=== PATIENT | male | born 1965 | race Caucasian/White ===

== ENCOUNTER → 2016-04-11 | Outpatient (CLI) | payer BC ==
[~2016-04-11] MED LIST: ALLGUNK PO; IBUP-103 PO
[2016-04-11 12:22] LABS: HEMATOCRIT 43.5 % (42-52); MEAN CELL VOLUME 81.3 fL (80-100); MEAN CORPUSCULAR HEMOGLOBIN 28.8 pg (25-34); MEAN CORPUSCULAR HGB CONC 35.4 g/dl (32-36); MEAN PLATELET VOLUME 10.5 fL (7.4-10.4); PLATELET COUNT 169 K/uL (130-400); RED BLOOD COUNT 5.35 M/uL (4.7-6.1); WHITE BLOOD COUNT 5.33 K/uL (4.8-10.8)
[2016-04-11 12:33] LABS: ALT/SGPT 24 U/L (12-78); BLOOD UREA NITROGEN 16 mg/dl (7-18); BUN/CREATININE RATIO 14.5 (10-20); CALCIUM 8.8 mg/dl (8.5-10.1); CARBON DIOXIDE 29 mmol/L (21-32); CHLORIDE 104 mmol/L (98-107); CHOLESTEROL 236 mg/dl (0-200); GLUCOSE 82 mg/dl (70-99); POTASSIUM 4.2 mmol/L (3.5-5.1); SODIUM 141 mmol/L (136-145); TRIGLYCERIDES 163 mg/dl (0-150); VERY LOW DENSITY LIPOPROT CALC 33 mg/dl
[2016-04-11 12:38] LABS: ALB/GLOB RATIO 1.3 (0.9-2); ALKALINE PHOSPHATASE 56 U/L (45-117); AST/SGOT 17 U/L (15-37); CHOLESTEROL/HDL RATIO 5.5; HDL CHOLESTEROL 43 mg/dl; LDL CHOLESTEROL CALCULATED 160 mg/dl
[2016-04-11 13:52] LABS: LYME DISEASE AB IGG NEG (NEG)
[2016-04-11 13:53] LABS: LYME DISEASE AB IGM NEG (NEG)
== END | disposition home or self-care (01) ==
LOC: C.LABBFT 09:09
PROVIDERS: ATTEND Internal Medicine
DX: Z12.5 Encounter for screening for malignant neoplasm of prostate (principal); E78.5 Hyperlipidemia, unspecified; W57.XXXA Bitten or stung by nonvenomous insect and other nonvenomous arthropods, initial encounter; S30.861A Insect bite (nonvenomous) of abdominal wall, initial encounter

== ENCOUNTER → 2016-11-27 | Day surgery (SDC) | payer BC ==
[2016-11-14 07:43] VITALS: Ht 180.3 cm; Wt 90.9 kg
[~2016-11-27] VITALS: Ht 180.3 cm; Wt 90.9 kg
[~2016-11-27] MED LIST changes: -ALLGUNK PO; +LIDOCAINE HCL 2% 2 ML VIAL (20MG/ML) ONE; +PROPOFOL IV EMULSION 10 MG/ML 20 ML VIAL IV ONE
--- NOTE | 2016-11-27 09:33 | Endo History and Physical ---
History & Physical Date of Service: Nov 27, 2016. Chief Complaint: Screening Referring Physician: Dr. Varner History of Present Illness 51 yo CM who presents for screening colonoscopy. Past Surgical History Hx Cardiac Surgery: No Hx Internal Defibrillator: No Hx Pacemaker: No Hx Abdominal Surgery: Yes (APPY) Hx of Implantable Prosthesis: No Hx Post-Op Nausea and Vomiting: No Hx Cancer Surgery: No Hx Thoracic Surgery: No Hx Orthopedic: Yes (LOWER RT LEG SURGERY) Hx Urinary Tract Surgery: No Family History None Social History Smoking Status: Never Smoker Hx Substance Use: No Hx Alcohol Use: No Allergies Coded Allergies: No Known Allergies (Verified , 11/27/16) Current Medications Reported Home Medications Medications Dose Route/Sig Max Daily Dose Days Date Category Advil (Ibuprofen) 200 Mg Tab 400-600 Mg PO Q6H PRN 11/14/16 Reported Vital Signs Weight (Kilograms): 90.91 Height (Feet): 5 Height (Inches): 11 Date Time Temp Pulse Resp B/P (MAP) Pulse Ox O2 Delivery O2 Flow Rate FiO2 11/27/16 09:24 36.4 71 20 138/79 (98) 99 Room Air Physical Exam General Appearance: WD/WN, no apparent distress Respiratory/Chest: Auscultation: breath sounds normal Cardiovascular: Heart Auscultation: RRR Abdomen: Bowel Sounds: normal Inspection & Palpation: soft, non-distended, no tenderness, guarding & rebound Assessment and Plan Assessment: 51 yo CM who presents for screening colonoscopy. Plan: Proceed with colonoscopy.
--- NOTE | 2016-11-27 10:20 | Discharge Instructions ---
Endoscopy Patient Instructions Date / Procedure(s) Performed Nov 27, 2016. Colonoscopy Allergy Information Coded Allergies: No Known Allergies (Verified , 11/27/16) Discharge Date / Findings Nov 27, 2016. Colon polyps Internal Hemorrhoids Medication Instructions OK to resume all medications today as prescribed Reported Home Medications Medications Dose Route/Sig Max Daily Dose Days Date Category Advil (Ibuprofen) 200 Mg Tab 400-600 Mg PO Q6H PRN 11/14/16 Reported Provider Instructions Activity Restrictions - No exercising or heavy lifting for 24 hours. - Do not drink alcohol the day of the procedure. - Do not drive a car or operate machinery until the day after the procedure. - Do not make any important decisions or sign important papers in 24 hours after the procedure. Following Day: - Return to full activity which may include returning to work/school. Diet Start your diet with liquids and light foods (jello, soup, juice, toast). Then eat your usual diet if not nauseated. Treatment For Common After Affects For mild abdominal pain, bloating, or excessive gas: - Rest - Eat lightly - Lie on right side Follow-Up Information Follow-up with DR. MONTANO as scheduled Anesthesia Information What You Should Know You have had a procedure that required some medicine to reduce anxiety and discomfort. This treatment is called moderate sedation. After receiving the treatment, you may be sleepy, but you will be able to breathe on your own. The effects of the treatment may last for several hours. Follow these instructions along with Activity/Diet recommendations noted above: * Do NOT do anything where dizziness or clumsiness would be dangerous. * Rest quietly at home today, then you can be up and about tomorrow. * Have a responsible person stay with you the rest of today. * You may have had an I.V. today. If so, you may take the dressing off later today. Recommendations Call your doctor if: * Trouble breathing * Continuous vomiting for more than 24 hours * Temperature above 101 degrees * Severe abdominal pain or bloating * Pain not relieved by pain medicine ordered * There is increased drainage or redness from any incision * A large amount of rectal bleeding greater than 2-3 tablespoons. (If you had a polyp/s removed or have hemorrhoids, a small amount of blood - from the rectum is to be expected.) * You have any unanswered questions or concerns. IN THE EVENT OF A SERIOUS EMERGENCY, GO TO THE NEAREST EMERGENCY ROOM Your discharge instructions were prepared by provider Sandip Trevizo. Patient Instructions Signature Page Que Rodriges Patient (or Guardian) Signature/Date: I have read and understand the instructions given to me by my caregivers. Caregiver/RN/Doctor Signature/Date: The above-named patient and/or guardian has received patient instructions on this date. + Original Patient Signature Page (only) stays with chart. Please make copy for patient.
--- NOTE | 2016-11-27 10:54 | Anesthesiology Progress Note ---
Anesthesia Post Op Note Date & Time Nov 27, 2016 at 10:54 Vital Signs Pain Intensity: 0 Vital Signs Past 12 Hours Date Time Temp Pulse Resp B/P (MAP) Pulse Ox O2 Delivery O2 Flow Rate FiO2 11/27/16 10:41 64 20 121/86 (98) 98 Room Air 11/27/16 10:26 69 16 132/82 (99) 96 Room Air 11/27/16 10:11 67 16 124/79 (94) 95 Room Air 11/27/16 09:24 36.4 71 20 138/79 (98) 99 Room Air Notes Mental Status: alert / awake / arousable, participated in evaluation Pt Amnestic to Procedure: Yes Nausea / Vomiting: adequately controlled Pain: adequately controlled Airway Patency, RR, SpO2: stable & adequate BP & HR: stable & adequate Hydration State: stable & adequate Anesthetic Complications: no major complications apparent
[2016-11-27 11:00] VITALS: BP 124/87; PULSE 62; O2SAT 98
--- NOTE | 2016-11-28 00:14 | GI REPORT ---
Procedure Date: 11/27/2016 9:57 AM Procedure: Colonoscopy Indications: Screening for colorectal malignant neoplasm Medicines: Monitored Anesthesia Care Complications: No immediate complications. Estimated Blood Loss: Estimated blood loss: none. Procedure: Pre-Anesthesia Assessment: - Prior to the procedure, a History and Physical was performed, and patient medications and allergies were reviewed. The patient's tolerance of previous anesthesia was also reviewed. The risks and benefits of the procedure and the sedation options and risks were discussed with the patient. All questions were answered, and informed consent was obtained. Prior Anticoagulants: The patient has taken no previous anticoagulant or antiplatelet agents. ASA Grade Assessment: II - A patient with mild systemic disease. After reviewing the risks and benefits, the patient was deemed in satisfactory condition to undergo the procedure. After I obtained informed consent, the scope was passed under direct vision. Throughout the procedure, the patient's blood pressure, pulse, and oxygen saturations were monitored continuously. The scope was introduced through the anus and advanced to the terminal ileum. The colonoscopy was performed without difficulty. The patient tolerated the procedure well. The quality of the bowel preparation was good. The terminal ileum, ileocecal valve, appendiceal orifice, and rectum were photographed. Findings: A 4 mm polyp was found in the ascending colon. The polyp was sessile. The polyp was removed with a cold snare. Resection and retrieval were complete. A 6 mm polyp was found in the sigmoid colon. The polyp was sessile. The polyp was removed with a hot snare. Resection and retrieval were complete. Non-bleeding internal hemorrhoids were found during retroflexion. The hemorrhoids were small. Impression: - One 4 mm polyp in the ascending colon, removed with a cold snare. Resected and retrieved. - One 6 mm polyp in the sigmoid colon, removed with a hot snare. Resected and retrieved. - Non-bleeding internal hemorrhoids. Recommendation: - Resume previous diet. - Continue present medications. - Repeat colonoscopy for surveillance based on pathology results. - Return to primary care physician as previously scheduled. Sandip Trevizo DO 11/27/2016 10:23:28 AM This report has been signed electronically. Note Initiated On: 11/27/2016 9:57 AM I attest to the content of the Intraoperative Record and orders documented therein, exceptions below
== END | disposition home or self-care (01) ==
LOC: C.GI 09:08
PROVIDERS: ATTEND Internal Medicine
DX: Z12.11 Encounter for screening for malignant neoplasm of colon (principal); D12.2 Benign neoplasm of ascending colon; D12.5 Benign neoplasm of sigmoid colon; K64.8 Other hemorrhoids

== ENCOUNTER 2017-07-29 00:04 | Emergency (ER) | payer BC ==
[~2017-07-29] VITALS: Ht 180.3 cm; Wt 90.6 kg
[~2017-07-29 00:04] MED LIST changes: -LIDOCAINE HCL 2% 2 ML VIAL (20MG/ML) ONE; -PROPOFOL IV EMULSION 10 MG/ML 20 ML VIAL IV ONE
[2017-07-29 00:19] VITALS: O2SAT 98
[2017-07-29] MEDS ORDERED: FLUT0.15 NAE (00:35)
[2017-07-29] MEDS ORDERED: AMOX500C3 PO (00:35)
[2017-07-29 00:46] VITALS: Ht 180.3 cm; Wt 90.6 kg
[2017-07-29 00:57] LABS: BASO % 0.6 %; BASO ABS # 0.02 K/uL (0-0.2); EOS % 0.6 %; EOS ABS # 0.02 K/uL (0-0.5); HEMATOCRIT 42.7 % (42-52); HEMOGLOBIN 15.1 g/dL (14.0-18.0); IG# 0.03 K/uL (0.00-0.02); LYMPH % 11.4 %; LYMPH ABS # 0.39 K/uL (1.2-3.4); MEAN CELL VOLUME 81.8 fL (80-100); MEAN CORPUSCULAR HEMOGLOBIN 28.9 pg (25-34); MEAN CORPUSCULAR HGB CONC 35.4 g/dl (32-36); MONO % 19.3 %; MONO ABS # 0.66 K/uL (0.11-0.59); NEUT % 67.2 %; PLATELET COUNT 140 K/uL (130-400); WHITE BLOOD COUNT 3.42 K/uL (4.8-10.8)
[2017-07-29 01:01] LABS: ALBUMIN 3.9 gm/dl (3.4-5.0); ALT/SGPT 23 U/L (12-78); AST/SGOT 17 U/L (15-37); BLOOD UREA NITROGEN 13 mg/dl (7-18); CALCIUM 8.9 mg/dl (8.5-10.1); CARBON DIOXIDE 28 mmol/L (21-32); GLUCOSE 104 mg/dl (70-99); POTASSIUM 3.7 mmol/L (3.5-5.1); SODIUM 139 mmol/L (136-145)
[2017-07-29 01:04] LABS: ALKALINE PHOSPHATASE 52 U/L (45-117); TOTAL PROTEIN 7.2 gm/dl (6.4-8.2)
[2017-07-29] MEDS ORDERED: ACETAMINOPHEN 500 MG TAB PO STA (01:07)
[2017-07-29 01:13] LABS: PTT PATIENT 25.2 SECONDS (21.0-31.0)
[2017-07-29 02:47] VITALS: TEMP 37.8
[2017-07-29] MEDS ORDERED: OPTIRAY 320 IV PRN (04:00)
[2017-07-29 04:50] VITALS: BP 108/62; PULSE 80; O2SAT 92
--- NOTE | 2017-07-29 06:25 | EMERGENCY ROOM VISIT NOTE ---
History Report prepared by Parvin: Khai Centeno Under the Supervision of: Dr. Urvashi Hughes D.O. First contact with patient: 00:17 Chief Complaint: FEVER Stated Complaint: SOB,TEMP 101.4,NAUSEA,DIZZY History of Present Illness The patient is a 52 year old male who presents to the Emergency Room with complaints of a worsening fever and cold sweats that began tonight while he was going to sleep. The patient noted several different other recent symptoms including chest "pressure," shortness of breath, dizziness, and nausea. He notes that his symptoms started about 1 week ago with "pressure and ringing" in the left ear. He saw his PCP and was placed on 10 days of Amoxicillin for sinus infection. The patient then developed some nausea and stomach discomfort yesterday. He visited with [facility] today where he complained of the dizziness, shortness of breath, and chest pressure. They performed an EKG which they noted was irregular. They suggested setting up a cardiology appointment and repeating the study. They also tested for influenza which was negative. Source of History: patient Onset: This evening Position: chest Quality: pressure, other (SOB) Timing: worsening Associated Symptoms: + fevers, + chills, + chest pain, + SOB, + nausea, + abdominal pain Review of Systems See HPI for pertinent positives & negatives. A total of 10 systems reviewed and were otherwise negative. Past Medical & Surgical Denies any past medical history. Family History Diabetes mellitus Heart disease Hypertension Social History Smoking Status: Never Smoker Alcohol Use: none Marital Status: Occupation Status: employed Current/Historical Medications Scheduled Amoxicillin (Amoxil), Unknown Dose PO DIRECTED Fluticasone Propionate (Nasal) (Flonase Allergy Relief), 2 SPRAYS MARGARITA DAILY Scheduled PRN Ibuprofen Tab (Advil), 400-600 MG PO Q6H PRN for Pain Allergies Coded Allergies: No Known Allergies (Verified , 07/29/17) Physical Exam Vital Signs Date Time Temp Pulse Resp B/P (MAP) Pulse Ox O2 Delivery O2 Flow Rate FiO2 07/29/17 04:50 80 108/62 92 07/29/17 02:50 85 18 102/56 98 Room Air 07/29/17 02:47 37.8 07/29/17 01:19 85 18 129/70 98 Room Air 07/29/17 00:20 93 07/29/17 00:19 98 Room Air 07/29/17 00:10 37.9 109 18 122/72 97 Room Air Physical Exam HEENT: Head - normocephalic and atraumatic Pupils are equal, round, and reactive to light. Extraocular eye muscles are intact, and sclera are anicteric. Ears - Left TM is erythematous, right is normal. Nose - moist nasal mucosa without discharge. Mouth - moist buccal mucosa. Oropharynx is nonerythematous and there is no tonsillar exudate or edema noted. Neck: Supple; no JVD, nuchal rigidity, cervical lymphadenopathy, or auscultated bruits. Heart: Regular rate and rhythm. There is a normal S1 and S2 with no murmurs, clicks, or gallops appreciated. Lungs: Clear to auscultation bilaterally with no wheezes, rales, or rhonchi. Abdomen: Soft, completely nontender, nondistended, with good bowel sounds. There are no palpable pulsatile masses or hepatosplenomegaly. There is no guarding, rigidity, or rebound noted. Extremities: No evidence of cyanosis, clubbing, or edema. There are easily palpable peripheral pulses. Skin: warm and dry with good turgor and no rashes. Medical Decision & Procedures ER Provider Diagnostic Interpretation: Radiology results as stated below per my review: PORTABLE CHEST X-RAY: No pulmonary infiltrate, no cardiomegaly, no pleural effusion. CTA CHEST: No evidence for pulmonary embolism. No segmental consolidation, pleural effusion or pneumothorax. Minimal dependent presumed atelectasis posteriorly. The thoracic aorta is unremarkable. No pericardial effusion or evidence for right hear t dysfunction. Radiologist: Familia Jiménez MD Laboratory Results 07/29/17 00:25 Red Blood Count 5.22, Mean Corpuscular Volume 81.8, Mean Corpuscular Hemoglobin 28.9, Mean Corpuscular Hemoglobin Concent 35.4, Neutrophils (%) (Auto) 67.2, Lymphocytes (%) (Auto) 11.4, Monocytes (%) (Auto) 19.3, Eosinophils (%) (Auto) 0.6, Basophils (%) (Auto) 0.6, Neutrophils # (Auto) 2.30, Lymphocytes # (Auto) 0.39, Monocytes # (Auto) 0.66, Eosinophils # (Auto) 0.02, Basophils # (Auto) 0.02 07/29/17 00:25 Test 07/29/17 00:25 07/29/17 01:10 07/29/17 02:15 White Blood Count 3.42 K/uL (4.8-10.8) Red Blood Count 5.22 M/uL (4.7-6.1) Hemoglobin 15.1 g/dL (14.0-18.0) Hematocrit 42.7 % (42-52) Mean Corpuscular Volume 81.8 fL (80-100) Mean Corpuscular Hemoglobin 28.9 pg (25-34) Mean Corpuscular Hemoglobin Concent 35.4 g/dl (32-36) Platelet Count 140 K/uL (130-400) Neutrophils (%) (Auto) 67.2 % Lymphocytes (%) (Auto) 11.4 % Monocytes (%) (Auto) 19.3 % Eosinophils (%) (Auto) 0.6 % Basophils (%) (Auto) 0.6 % Neutrophils # (Auto) 2.30 K/uL (1.4-6.5) Lymphocytes # (Auto) 0.39 K/uL (1.2-3.4) Monocytes # (Auto) 0.66 K/uL (0.11-0.59) Eosinophils # (Auto) 0.02 K/uL (0-0.5) Basophils # (Auto) 0.02 K/uL (0-0.2) Immature Granulocyte % (Auto) 0.9 % Immature Granulocyte # (Auto) 0.03 K/uL (0.00-0.02) Prothrombin Time 10.8 SECONDS (9.0-12.0) Prothromb Time International Ratio 1.0 (0.9-1.1) Activated Partial Thromboplast Time 25.2 SECONDS (21.0-31.0) Partial Thromboplastin Ratio 1.0 D-Dimer 1020 ug/L FEU (0-500) Anion Gap 5.0 mmol/L (3-11) Est Creatinine Clear Calc Drug Dose 76.5 ml/min Estimated GFR () 72.7 Estimated GFR (Non- 62.7 BUN/Creatinine Ratio 10.1 (10-20) Calcium Level 8.9 mg/dl (8.5-10.1) Total Bilirubin 1.5 mg/dl (0.2-1) Aspartate Amino Transf (AST/SGOT) 17 U/L (15-37) Alanine Aminotransferase (ALT/SGPT) 23 U/L (12-78) Alkaline Phosphatase 52 U/L (45-117) Troponin I < 0.015 ng/ml (0-0.045) Pro-B-Type Natriuretic Peptide 64 pg/ml (0-900) Total Protein 7.2 gm/dl (6.4-8.2) Albumin 3.9 gm/dl (3.4-5.0) Globulin 3.3 gm/dl (2.5-4.0) Albumin/Globulin Ratio 1.2 (0.9-2) Lyme Disease IgG Antibody NEG (NEG) Lyme Disease IgM Antibody NEG (NEG) Bedside Lactic Acid Venous 0.96 mmol/L (0.90-1.70) Urine Color YELLOW Urine Appearance CLEAR (CLEAR) Urine pH 7.0 (4.5-7.5) Urine Specific [place] 1.023 (1.000-1.030) Urine Protein NEG (NEG) Urine Glucose (UA) NEG (NEG) Urine Ketones TRACE (NEG) Urine Occult Blood NEG (NEG) Urine Nitrite NEG (NEG) Urine Bilirubin NEG (NEG) Urine Urobilinogen NEG (NEG) Urine Leukocyte Esterase NEG (NEG) Urine WBC (Auto) 1-5 /hpf (0-5) Urine RBC (Auto) 0-4 /hpf (0-4) Urine Hyaline Casts (Auto) 0 /lpf (0-5) Urine Epithelial Cells (Auto) 5-10 /lpf (0-5) Urine Bacteria (Auto) NEG (NEG) Laboratory results per my review. Medications Administered Medications (Trade) Dose Ordered Sig/Tracie Route Start Time Stop Time Status Last Admin Dose Admin Acetaminophen (Tylenol Tab) 1,000 mg NOW STAT PO 07/29/17 01:07 07/29/17 01:08 DC 07/29/17 01:15 1,000 MG Procedure Medications Ordered: Tylenol ECG Per My Interpretation Indication: chest pain, SOB/dyspnea Rate (beats per minute): 84 Rhythm: normal sinus Findings: no acute ischemic change, no ectopy, other (No ST-segment changes) ED Course 0036: Past medical records reviewed. The patient was evaluated in room B5. A complete history and physical exam was performed. A septic protocol was performed. 0107: Ordered Tylenol 1000 mg PO. 0201: I checked on the patient at this time. I went over all of the labs, the patient's asked about the possibility of Lyme Disease. I ordered additional testing including a d-dimer, Lyme titer, and troponin. 0305: Lyme titer and troponin were negative. The patient to have an elevated d- dimer. He will go for CT scan of the chest to rule out PE. 0434: Upon reevaluation, the patient is resting in bed. I discussed findings and results with the patient and his . They verbalized agreement of the treatment plan. The patient was discharged home. Medical Decision The patient is a 52 year old male who presents to the emergency department for fevers, chills, shortness of breath, and chest pressure. Differential diagnosis includes; sepsis, pneumonia, bronchitis, CHF, cardiac dysrythmia, influenza, Lyme Disease, pulmonary embolism, and UTI. Laboratory results were reviewed and show; Lactic acid of 0.9, normal renal function, glucose of 104, LFTs normal with the exception of Bilirubin of 1.5, WBC of 3.4, stable hemoglobin and hematocrit. D-dimer was 1020, negative troponin and negative BNP. Influenza was negative. Lyme testing was negative The urinalysis was reviewed and shows trace ketones. This is a 52-year-old male patient presents to the emergency department with a week's history of shortness of breath and fever. A septic protocol was performed and was essentially negative. The patient's white blood cell count was slightly low. He had a low-grade fever and was slightly tachycardic. By clinical history, the patient's symptoms sound consistent with an acute bronchitis. However, the patient had an elevated d-dimer. CT scan of the chest was completely unremarkable. No other acute source of infection could be identified. Influenza testing was negative. Lyme testing was negative. I have asked the patient to rest over the next couple of days. He will need to have close follow-up with his PCP if the fevers persist. If symptoms worsen, he should return to the ER. Medication Reconcilliation Current Medication List: was personally reviewed by me Blood Pressure Screening Patient's blood pressure: Normal blood pressure Impression Primary Impression: Febrile illness, acute Additional Impression: Shortness of breath Scribe Attestation The scribe's documentation has been prepared under my direction and personally reviewed by me in its entirety. I confirm that the note above accurately reflects all work, treatment, procedures, and medical decision making performed by me. Departure Information Dispostion Home / Self-Care Referrals Oneil Varner M.D. (PCP) Forms HOME CARE DOCUMENTATION FORM, IMPORTANT VISIT INFORMATION Patient Instructions My [facility] Additional Instructions Rest. Use tylenol for fever. Follow up with PCP in next 48 hours if fever continues Problem Qualifiers
--- NOTE | 2017-07-29 06:43 | DIAGNOSTIC IMAGING REPORT ---
CT ANGIOGRAPHY OF THE CHEST, PULMONARY EMBOLUS PROTOCOL CLINICAL HISTORY: Shortness of breath, dizziness and fever. COMPARISON STUDY: Chest radiograph July 29, 2017. TECHNIQUE: Following IV administration of 91 mL of Optiray-320, helical axial images of the chest were obtained utilizing the pulmonary embolus protocol. Maximal intensity projections and sagittal and coronal reformats were viewed on an independent 3D workstation. IV contrast was administered without complication. A dose lowering technique was utilized adhering to the principles of ALARA. CT DOSE: 465.82 mGy.cm FINDINGS: No pulmonary emboli are identified. There is no evidence of thoracic aortic dissection. The size of the heart is normal. There is no pericardial effusion. No enlarged thoracic lymph nodes are noted. A 4 mm left lower lobe pulmonary nodule shown on image 125 is likely benign. There is no consolidation to suggest pneumonia. No pneumothorax or pleural effusion is noted. The central airways are patent. There are no suspicious osseous lesions. There is borderline splenomegaly. IMPRESSION: 1. No pulmonary emboli identified. 2. No acute intrathoracic findings. No consolidation to suggest pneumonia. Electronically signed by: Santo Rainey M.D. 07/29/2017 6:42 AM Dictated Date/Time: 07/29/2017 6:35 AM
--- NOTE | 2017-07-29 06:44 | DIAGNOSTIC IMAGING REPORT ---
CHEST ONE VIEW PORTABLE CLINICAL HISTORY: Sepsis dyspnea COMPARISON STUDY: No previous studies for comparison. FINDINGS: The bones soft tissues and hemidiaphragms are normal. The cardiomediastinal silhouette is normal. The lungs are clear. The pulmonary vasculature is normal. IMPRESSION: Negative chest. The above report was generated using voice recognition software. It may contain grammatical, syntax or spelling errors. Electronically signed by: Jonathan Donohue M.D. 07/29/2017 6:42 AM Dictated Date/Time: 07/29/2017 6:42 AM
== END 2017-07-29 04:51 | disposition home or self-care (01) ==
LOC: C.EDB 00:07
DX: R50.9 Fever, unspecified (principal); R06.02 Shortness of breath; Z82.49 Family history of ischemic heart disease and other diseases of the circulatory system; Z79.2 Long term (current) use of antibiotics; Z79.52 Long term (current) use of systemic steroids

== ENCOUNTER → 2017-11-24 | Outpatient (CLI) | payer BC ==
[~2017-11-24] MED LIST changes: +AMOX500C3 PO; +FLUT0.15 NAE
[2017-11-24 12:59] LABS: HEMATOCRIT 42.6 % (42-52); HEMOGLOBIN 15.4 g/dL (14.0-18.0); MEAN CELL VOLUME 81.3 fL (80-100); MEAN CORPUSCULAR HEMOGLOBIN 29.4 pg (25-34); MEAN CORPUSCULAR HGB CONC 36.2 g/dl (32-36); MEAN PLATELET VOLUME 10.5 fL (7.4-10.4); PLATELET COUNT 174 K/uL (130-400); RED CELL DISTRIBUTION WIDTH CV 12.8 % (11.5-14.5); RED CELL DISTRIBUTION WIDTH SD 38.5 fL (36.4-46.3); WHITE BLOOD COUNT 4.97 K/uL (4.8-10.8)
== END | disposition home or self-care (01) ==
LOC: C.LABBFT 09:59
PROVIDERS: ATTEND Physician Assistant Medical
DX: E78.5 Hyperlipidemia, unspecified (principal)